=== PATIENT | male | born 1970 | race Caucasian/White ===

== ENCOUNTER 2017-07-15 12:21 | Emergency (ER) | payer BC, OTHER ==
[2017-07-15] MEDS ORDERED: Ondansetron 4 MG/2 ML SDV IVPUSH ONE (13:20)
[2017-07-15] MEDS ORDERED: Sodium Chloride 0.9% 1,000 ML IV ONE ×2 (13:20→16:16)
[2017-07-15] MEDS ORDERED: Morphine 2 MG/ML Syringe IVPUSH ONE (13:20)
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
[2017-07-15 14:30] LABS: CHLORIDE,CL 102 mmol/L (98-107); SODIUM,NA 138 mmol/L (136-148)
--- NOTE | 2017-07-15 14:34 | PCM.SN ---
- Free Text/Narrative Note: called or IV start. Patient gives verbal consent. Left hand x 1 attempt 18 ga aseptic technique saline lock dressing and secured with tape.
[2017-07-15] MEDS ORDERED: Iopamidol 755 MG/ML 500 ML Multipack Bottle IVPUSH STA (14:53)
[2017-07-15] MEDS ORDERED: Piperacillin/Tazobactam 3.375 GM in Sodium Chloride 0.9% 50 ML IV ONE (15:18)
--- NOTE | 2017-07-15 15:24 | CT ---
CT scan of the abdomen and pelvis Clinical history: Left lower quadrant pain extending to groin Comparison: None. Findings: Multiple computed tomographic images were obtained with intravenous Isovue-370, 90 mL Lung bases are clear. Liver spleen pancreas and gallbladder are within normal limits. Kidneys adrenals and retroperitoneum are normal. Scanning through the lower abdomen into the pelvis demonstrates a soft tissue mass in the left lower quadrant inseparable from the colon with air bubbles extending into the soft tissues adjacent includi ng a large iliopsoas multicompartment abscess. This is not typical of diverticulitis which usually re spects these boundaries. Most serious concern would be with a neoplasm of the descending colon which has perforated and surgical consultation advised. Inflammation extends anteriorly toward the groin. Impression: Large left iliopsoas multicompartment abscess with soft tissue mass in the colon and like ly perforation. This is not typical for diverticulitis and most serious possibility is a perforated n eoplasm. Surgical consultation advised
[2017-07-15] MEDS ORDERED: fentaNYL 100 MCG/2 ML SDV IVPUSH ONE (16:16)
[2017-07-15 17:26] VITALS: BP 102/56
== END 2017-07-15 17:10 ==
LOC: MW.ED 12:21
DX: L02.211 Cutaneous abscess of abdominal wall (principal); F17.210 Nicotine dependence, cigarettes, uncomplicated
CPT/HCPCS: 36415; 74177; 80053; 81001; 85025; 85610; 87040; 96361; 96365; 96375; 99285; J2270; J2405; J2543; J3010; J7040; J7050; Q9967; 99283

== ENCOUNTER 2018-07-04 08:34 | Observation (INO) | payer MEDICAID ==
[2018-07-04] MEDS ORDERED: Ondansetron 4 MG/2 ML SDV IVPUSH ONE (09:02)
[2018-07-04] MEDS ORDERED: Sodium Chloride 0.9% 2.5 ML Syringe FLUSH PRN (09:02)
[2018-07-04] MEDS ORDERED: Sodium Chloride 0.9% 1,000 ML IV ONE (09:02)
[2018-07-04] MEDS ORDERED: Sodium Chloride 0.9% 10 ML Syringe FLUSH PRN (09:02)
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
[2018-07-04 09:46] LABS: CHLORIDE,CL 103 mmol/L (98-107); SODIUM,NA 139 mmol/L (136-148)
[2018-07-04] MEDS ORDERED: Azithromycin 250 MG Tab PO ONE (09:50)
--- NOTE | 2018-07-04 10:06 | CR ---
INDICATION: pain/sob Single AP view Findings: The lungs are clear. Pulmonary vascularity, mediastinum and cardiac silhouette are within normal limits. No effusions and no pneumothorax. Chronic fracture or thoracotomy changes lateral left chest wall. Impression: No evidence of acute cardiopulmonary disease. Dictated by: Harshad Ferrell MD @ 07/04/2018 10:04:05 (Electronically Signed)
[2018-07-04] MEDS ORDERED: Iopamidol 755 MG/ML 500 ML Multipack Bottle IVPUSH ONE (10:12)
[2018-07-04] MEDS ORDERED: Levofloxacin/Dextrose 5%-Water 750 MG in Premix Bag 1 BAG IV ONE (10:17)
--- NOTE | 2018-07-04 10:36 | CT ---
INDICATION: Diarrhea. Recent reversal colostomy. COMPARISON: [address] TECHNIQUE: 100 mL Isovue-370 IV contrast. FINDINGS: Strandy atelectasis at the left costophrenic angle. Some residual pneumoperitoneum. Fluid and air in mildly prominent stomach. Fluid and air within large and small bowel. End-to-side anastomotic staple line in the sigmoid. Decompressed sigmoid and rectum distal from this. Relative mild enhancement of wall and folds of the large and small bowel proximal from the anastomosis. Small amount of air and hazy inflammation in the left abdominal wall under the presumed prior ostomy site. Small amount of dependent fluid in the peritoneum. IMPRESSION: Postop ileus versus potentially stenosis at the sigmoid anastomosis. Residual peritoneal and soft tissue air related to recent surgery. Please note that all CT scans at this facility use dose modulation, iterative reconstruction, and/or weight-based dosing when appropriate to reduce radiation dose to as low as reasonably achievable. Dictated by Harshad Ferrell MD @ Jul 04 2018 10:34AM Signed by Dr. Harshad Ferrell @ Jul 04 2018 10:34AM
[2018-07-04] MEDS ORDERED: Ondansetron 4 MG/2 ML SDV IVPUSH PRN (12:41)
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
[2018-07-04] MEDS: Sodium Chloride 0.9% 1,000 ML IV SCH ×2 (13:14→20:42)
[2018-07-04] MEDS: Heparin Sodium 5,000 Units/ML Vial SUBCUT SCH ×2 (13:15→20:42)
[2018-07-04] MEDS: Morphine 2 MG/ML Syringe IVPUSH PRN ×2 (16:49→20:42)
[2018-07-04] MEDS: metroNIDAZOLE/Normal Saline 500 MG in Premix Bag 1 BAG IV SCH (18:04)
[2018-07-04] MEDS: Nicotine 14 MG/24 Hr Patch TRDERM SCH (18:06)
[2018-07-04] MEDS: Vancomycin 25 MG/ML Compounding Kit PO SCH (19:20)
[2018-07-05] MEDS: metroNIDAZOLE/Normal Saline 500 MG in Premix Bag 1 BAG IV SCH ×5 (01:00→23:50)
[2018-07-05] MEDS: Vancomycin 25 MG/ML Compounding Kit PO SCH ×5 (01:00→23:49)
[2018-07-05] MEDS: Morphine 2 MG/ML Syringe IVPUSH PRN ×3 (01:40→08:39)
[2018-07-05] MEDS: Heparin Sodium 5,000 Units/ML Vial SUBCUT SCH ×3 (05:36→20:14)
[2018-07-05 06:48] LABS: CHLORIDE,CL 104 mmol/L (98-107); SODIUM,NA 139 mmol/L (136-148)
[2018-07-05] MEDS: Nicotine 14 MG/24 Hr Patch TRDERM SCH (08:47)
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
--- NOTE | 2018-07-05 09:00 | PCM.CONSN ---
- General Info Date of Service: 07/05/18 Subjective Update: Patient is a 47 year old male who underwent a colostomy takedown on Friday and left AMA on . He presented to the ER with nausea, vomiting, abdominal pain, distension and diarrhea. He tested positive for C. Diff, camphylobacter and his CT scan showed diffuse dilation of the large and small intestine consistent with either an ileus or stricture due to swelling at the anastomotic site. He is being treated with oral vanco and IV flagyl. He had a large amount of drainage from the ostomy closure site. He had no fevers and no vomiting last night. He states that the IV morphine has helped control his pain significantly. He is still having loose stool but is also passing gas. He feels less distended today. Functional Status: Reports: Pain Controlled, Ambulating, Urinating - Review of Systems General: Reports: No Symptoms HEENT: Reports: No Symptoms Pulmonary: Reports: No Symptoms Cardiovascular: Reports: No Symptoms Gastrointestinal: Reports: Abdominal Pain, Diarrhea, Flatus. Denies: Nausea, Vomiting - Patient Data Vitals - Most Recent: Last Vital Signs Temp 37.3 C 07/05/18 04:36 Pulse 73 07/05/18 04:36 Resp 18 07/05/18 04:36 BP 137/79 07/05/18 04:36 Pulse Ox 97 07/05/18 04:36 Weight - Most Recent: 72 kg I&O - Last 24 Hours: Intake & Output 07/04/18 07/05/18 07/05/18 22:59 06:59 14:59 Intake Total 467 1532 Balance 467 1532 Lab Results Last 24 Hours: Laboratory Results - last 24 hr 07/04/18 07/04/18 07/04/18 Range/Units 09:10 09:10 09:10 WBC 13.17 H (4.0-11.0) K/uL RBC 4.20 L (4.50-5.90) M/uL Hgb 12.6 L (13.0-17.0) g/dL Hct 36.6 L (38.0-50.0) % MCV 87.1 (80.0-98.0) fL MCH 30.0 (27.0-32.0) pg MCHC 34.4 (31.0-37.0) g/dL RDW Std Deviation 41.5 (28.0-62.0) fl RDW Coeff of Anand 13 (11.0-15.0) % Plt Count 291 (150-400) K/uL MPV 9.10 (7.40-12.00) fL Neut % (Auto) 90.0 H (48.0-80.0) % Lymph % (Auto) 5.5 L (16.0-40.0) % [place] % (Auto) 3.1 (0.0-15.0) % Eos % (Auto) 1.3 (0.0-7.0) % Baso % (Auto) 0.1 (0.0-1.5) % Neut # (Auto) 11.9 H (1.4-5.7) K/uL Lymph # (Auto) 0.7 (0.6-2.4) K/uL [place] # (Auto) 0.4 (0.0-0.8) K/uL Eos # (Auto) 0.2 (0.0-0.7) K/uL Baso # (Auto) 0.0 (0.0-0.1) K/uL Nucleated RBC % 0.0 /100WBC Nucleated RBCs # 0 K/uL INR 0.97 Lactate (0.20-2.00) mmol/L Sodium (136-148) mmol/L Potassium (3.5-5.1) mmol/L Chloride (98-107) mmol/L Carbon Dioxide (21.0-32.0) mmol/L BUN (7.0-18.0) mg/dL Creatinine (0.8-1.3) mg/dL Est Cr Clr Drug Dosing mL/min Estimated GFR (MDRD) ml/min Glucose (74-106) mg/dL Calcium (8.5-10.1) mg/dL Total Bilirubin (0.2-1.0) mg/dL AST (15-37) IU/L ALT (14-63) IU/L Alkaline Phosphatase (46-116) U/L Total Protein (6.4-8.2) g/dL Albumin (3.4-5.0) g/dL Globulin (2.6-4.0) g/dL Albumin/Globulin Ratio (0.9-1.6) Lipase (73-393) U/L Urine Color YELLOW Urine Appearance CLEAR Urine pH 6.0 (5.0-8.0) Ur Specific [place] 1.025 (1.001-1.035) Urine Protein 30 H (NEGATIVE) mg/dL Urine Glucose (UA) NEGATIVE (NEGATIVE) mg/dL Urine Ketones NEGATIVE (NEGATIVE) mg/dL Urine Occult Blood LARGE H (NEGATIVE) Urine Nitrite NEGATIVE (NEGATIVE) Urine Bilirubin SMALL H (NEGATIVE) Urine Ictotest NEGATIVE Urine Urobilinogen 0.2 (<2.0) EU/dL Ur Leukocyte Esterase NEGATIVE (NEGATIVE) Urine RBC 0-1 (0-2/HPF) Urine WBC 2-3 (0-5/HPF) Ur Epithelial Cells RARE (NONE-FEW) Urine Bacteria 1+ H (NEGATIVE) Urine Mucus HEAVY (NONE-MOD) Urine Yeast RARE 07/04/18 07/04/18 07/05/18 Range/Units 09:10 11:06 05:58 WBC 9.74 (4.0-11.0) K/uL RBC 3.70 L (4.50-5.90) M/uL Hgb 11.2 L (13.0-17.0) g/dL Hct 32.0 L (38.0-50.0) % MCV 86.5 (80.0-98.0) fL MCH 30.3 (27.0-32.0) pg MCHC 35.0 (31.0-37.0) g/dL RDW Std Deviation 40.9 (28.0-62.0) fl RDW Coeff of Anand 13 (11.0-15.0) % Plt Count 262 (150-400) K/uL MPV 9.20 (7.40-12.00) fL Neut % (Auto) 84.2 H (48.0-80.0) % Lymph % (Auto) 6.7 L (16.0-40.0) % [place] % (Auto) 6.4 (0.0-15.0) % Eos % (Auto) 2.5 (0.0-7.0) % Baso % (Auto) 0.2 (0.0-1.5) % Neut # (Auto) 8.2 H (1.4-5.7) K/uL Lymph # (Auto) 0.7 (0.6-2.4) K/uL [place] # (Auto) 0.6 (0.0-0.8) K/uL Eos # (Auto) 0.2 (0.0-0.7) K/uL Baso # (Auto) 0.0 (0.0-0.1) K/uL Nucleated RBC % 0.0 /100WBC Nucleated RBCs # 0 K/uL INR Lactate 1.2 (0.20-2.00) mmol/L Sodium 139 (136-148) mmol/L Potassium 3.5 (3.5-5.1) mmol/L Chloride 103 (98-107) mmol/L Carbon Dioxide 26.9 (21.0-32.0) mmol/L BUN 17 (7.0-18.0) mg/dL Creatinine 0.9 (0.8-1.3) mg/dL Est Cr Clr Drug Dosing 105.56 mL/min Estimated GFR (MDRD) > 60.0 ml/min Glucose 139 H (74-106) mg/dL Calcium 9.0 (8.5-10.1) mg/dL Total Bilirubin 0.7 (0.2-1.0) mg/dL AST 20 (15-37) IU/L ALT 17 (14-63) IU/L Alkaline Phosphatase 103 (46-116) U/L Total Protein 6.9 (6.4-8.2) g/dL Albumin 3.1 L (3.4-5.0) g/dL Globulin 3.8 (2.6-4.0) g/dL Albumin/Globulin Ratio 0.8 L (0.9-1.6) Lipase 67 L (73-393) U/L Urine Color Urine Appearance Urine pH (5.0-8.0) Ur Specific [place] (1.001-1.035) Urine Protein (NEGATIVE) mg/dL Urine Glucose (UA) (NEGATIVE) mg/dL Urine Ketones (NEGATIVE) mg/dL Urine Occult Blood (NEGATIVE) Urine Nitrite (NEGATIVE) Urine Bilirubin (NEGATIVE) Urine Ictotest Urine Urobilinogen (<2.0) EU/dL Ur Leukocyte Esterase (NEGATIVE) Urine RBC (0-2/HPF) Urine WBC (0-5/HPF) Ur Epithelial Cells (NONE-FEW) Urine Bacteria (NEGATIVE) Urine Mucus (NONE-MOD) Urine Yeast 07/05/18 Range/Units 05:58 WBC (4.0-11.0) K/uL RBC (4.50-5.90) M/uL Hgb (13.0-17.0) g/dL Hct (38.0-50.0) % MCV (80.0-98.0) fL MCH (27.0-32.0) pg MCHC (31.0-37.0) g/dL RDW Std Deviation (28.0-62.0) fl RDW Coeff of Anand (11.0-15.0) % Plt Count (150-400) K/uL MPV (7.40-12.00) fL Neut % (Auto) (48.0-80.0) % Lymph % (Auto) (16.0-40.0) % [place] % (Auto) (0.0-15.0) % Eos % (Auto) (0.0-7.0) % Baso % (Auto) (0.0-1.5) % Neut # (Auto) (1.4-5.7) K/uL Lymph # (Auto) (0.6-2.4) K/uL [place] # (Auto) (0.0-0.8) K/uL Eos # (Auto) (0.0-0.7) K/uL Baso # (Auto) (0.0-0.1) K/uL Nucleated RBC % /100WBC Nucleated RBCs # K/uL INR Lactate (0.20-2.00) mmol/L Sodium 139 (136-148) mmol/L Potassium 2.8 L (3.5-5.1) mmol/L Chloride 104 (98-107) mmol/L Carbon Dioxide 23.8 (21.0-32.0) mmol/L BUN 14 (7.0-18.0) mg/dL Creatinine 0.7 L (0.8-1.3) mg/dL Est Cr Clr Drug Dosing 135.71 mL/min Estimated GFR (MDRD) > 60.0 ml/min Glucose 104 (74-106) mg/dL Calcium 8.0 L (8.5-10.1) mg/dL Total Bilirubin 0.6 (0.2-1.0) mg/dL AST 18 (15-37) IU/L ALT 21 (14-63) IU/L Alkaline Phosphatase 114 (46-116) U/L Total Protein 5.5 L (6.4-8.2) g/dL Albumin 2.4 L (3.4-5.0) g/dL Globulin 3.1 (2.6-4.0) g/dL Albumin/Globulin Ratio 0.8 L (0.9-1.6) Lipase (73-393) U/L Urine Color Urine Appearance Urine pH (5.0-8.0) Ur Specific [place] (1.001-1.035) Urine Protein (NEGATIVE) mg/dL Urine Glucose (UA) (NEGATIVE) mg/dL Urine Ketones (NEGATIVE) mg/dL Urine Occult Blood (NEGATIVE) Urine Nitrite (NEGATIVE) Urine Bilirubin (NEGATIVE) Urine Ictotest Urine Urobilinogen (<2.0) EU/dL Ur Leukocyte Esterase (NEGATIVE) Urine RBC (0-2/HPF) Urine WBC (0-5/HPF) Ur Epithelial Cells (NONE-FEW) Urine Bacteria (NEGATIVE) Urine Mucus (NONE-MOD) Urine Yeast Tyson Results Last 24 Hours: Microbiology 07/04/18 15:05 Urine Culture - Preliminary Urine, Clean Catch NO GROWTH AFTER 1 DAY 07/04/18 09:10 Campylobacter Antigen Assay - Final Stool / Feces Positive Campylobacter Ag Shiga Toxin I - Final NEGATIVE FOR SHIGA TOXIN 1 REFERENCE RANGE: NEGATIVE Shiga Toxin II - Final NEGATIVE FOR SHIGA TOXIN 2 REFERENCE RANGE: NEGATIVE 07/04/18 09:10 Clostridium difficile Toxin A & B - Final Stool / Feces Positive C. Diff Antigen Stool for WBCs - Final POSITIVE FOR WBC'S REFERENCE RANGE: NO WBC SEEN Med Orders - Current: Current Medications Heparin Sodium (Porcine) (Heparin Sodium) 5,000 units SUBCUT Q8H [facility] Last Admin: 07/05/18 05:36 Dose: 5,000 units Levofloxacin/Dextrose 750 mg/ (Premix) 150 mls @ 100 mls/hr IV Q24H [facility] Metronidazole 500 mg/ Premix 100 mls @ 100 mls/hr IV QID [facility] Last Admin: 07/05/18 05:35 Dose: 100 mls/hr Sodium Chloride (Normal Saline) 1,000 mls @ 125 mls/hr IV ASDIRECTED [facility] Last Admin: 07/04/18 20:42 Dose: 125 mls/hr Morphine Sulfate (Morphine) 2 mg IVPUSH Q4H PRN PRN Reason: Pain Last Admin: 07/05/18 08:39 Dose: 2 mg Nicotine (Habitrol) 14 mg TRDERM DAILY [facility] Last Admin: 07/05/18 08:47 Dose: 14 mg Ondansetron HCl (Zofran) 4 mg IVPUSH Q4H PRN PRN Reason: Nausea Sodium Chloride (Saline Flush) 10 ml FLUSH ASDIRECTED PRN PRN Reason: Keep Vein Open Last Admin: 07/04/18 09:16 Dose: 10 ml Sodium Chloride (Saline Flush) 2.5 ml FLUSH ASDIRECTED PRN PRN Reason: Keep Vein Open Last Admin: 07/04/18 09:16 Dose: 2.5 ml Vancomycin HCl (First-Vancomycin 25 Compounding Kit) 125 mg PO QID [facility] Last Admin: 07/05/18 05:36 Dose: 5 ml Discontinued Medications Azithromycin (Zithromax) 500 mg PO STAT ONE Stop: 07/04/18 09:51 Last Admin: 07/04/18 10:09 Dose: 500 mg Sodium Chloride (Normal Saline) 1,000 mls @ 999 mls/hr IV STAT ONE Stop: 07/04/18 10:02 Last Admin: 07/04/18 09:14 Dose: 999 mls/hr Levofloxacin/Dextrose 750 mg/ (Premix) 150 mls @ 100 mls/hr IV ONETIME ONE Stop: 07/04/18 11:46 Last Admin: 07/04/18 11:11 Dose: 100 mls/hr Iopamidol (Isovue Multipack-370 (76%)) 100 ml IVPUSH ONETIME ONE Stop: 07/04/18 10:13 Last Admin: 07/04/18 10:12 Dose: 100 ml Ondansetron HCl (Zofran) 4 mg IVPUSH ONETIME ONE Stop: 07/04/18 09:03 Last Admin: 07/04/18 09:14 Dose: 4 mg - Exam General: Alert, Oriented, Cooperative Lungs: Normal Respiratory Effort Cardiovascular: Regular Rate GI/Abdominal Exam: Soft, No Distention, Other (There appears to be some purulent drainage from the ostomy site. I removed the melinda and there is an abscess cavity underneath. I irrigated and cleaned the area. The fascia appears intact underneath. ) Consult PN Assessment/Plan Procedures: Procedures BLOOD CULTURE FOR BACTERIA (07/15/17) COMPLETE CBC W/AUTO DIFF WBC (07/15/17) COMPREHEN METABOLIC PANEL (07/15/17) CT ABD & PELV W/CONTRAST (07/15/17) EMERGENCY DEPT VISIT (07/15/17) EMERGENCY DEPT VISIT (12/19/14) HYDRATE IV INFUSION ADD-ON (07/15/17) HYDRATION IV INFUSION INIT (10/16/17) PET IMAGE W/CT SKULL-THIGH (04/27/18) PROTHROMBIN TIME (07/15/17) ROUTINE VENIPUNCTURE (07/15/17) THER/PROPH/DIAG INJ SC/IM (10/16/17) THER/PROPH/DIAG IV INF INIT (07/15/17) TX/PRO/DX INJ NEW DRUG ADDON (07/15/17) URINALYSIS AUTO W/SCOPE (07/15/17) (1) C. difficile diarrhea SNOMED Code(s): 6146758890689 Code(s): A04.72 - ENTEROCOLITIS D/T CLOSTRIDIUM DIFFICILE, NOT SPCF RECUR Current Visit: Yes (2) Campylobacter diarrhea SNOMED Code(s): 37531171 Code(s): A04.5 - CAMPYLOBACTER ENTERITIS Current Visit: Yes (3) Gaseous distention of intestine determined by X-ray SNOMED Code(s): 606174924, 040030003 Code(s): K63.89 - OTHER SPECIFIED DISEASES OF INTESTINE Current Visit: Yes (4) History of colon cancer SNOMED Code(s): 583520724 Code(s): Z85.038 - PERSONAL HISTORY OF MALIGNANT NEOPLASM OF LARGE INTESTINE Current Visit: Yes (5) Post-operative complication SNOMED Code(s): 504268068 Code(s): T81.9XXA - UNSPECIFIED COMPLICATION OF PROCEDURE, INITIAL ENCOUNTER Current Visit: Yes (6) Surgical site infection SNOMED Code(s): 19114340, 337315467 Code(s): T81.49XA - INFECTION FOLLOWING A PROCEDURE, OTHER SURGICAL SITE, INIT Current Visit: Yes Problem List Initiated/Reviewed/Updated: Yes My Orders Last 24 Hours: My Active Orders 07/05/18 Breakfast Clear Liquid Diet [DIET] Plan: The patient's ostomy site was infected. I opened it and packed the wound with wet to dry dressings. No need for further antibiotics due to this. Daily wet to dry dressing changes by the nurses. Can be changed more frequently if it becomes saturated. His abdomen feels less distended and tender today. Ok to advance diet to clears. I would not go beyond that today. If he looks well in the morning, can attempt a regular diet. Will continue to follow. Call with questions or concerns.
[2018-07-05] MEDS: Sodium Chloride 0.9% 1,000 ML IV SCH ×2 (12:00→22:57)
[2018-07-05] MEDS: Levofloxacin/Dextrose 5%-Water 750 MG in Premix Bag 1 BAG IV SCH (13:25)
--- NOTE | 2018-07-05 14:03 | PCM.PN ---
- General Info Date of Service: 07/05/18 - Review of Systems Systems Review Comment:: still having diarrhea but more formed stool, abdominal pain improving. - Patient Data Vitals - Most Recent: Last Vital Signs Temp 37.1 C 07/05/18 09:30 Pulse 60 07/05/18 09:30 Resp 18 07/05/18 09:30 BP 130/79 07/05/18 09:30 Pulse Ox 97 07/05/18 09:30 Weight - Most Recent: 72 kg I&O - Last 24 Hours: Intake & Output 07/04/18 07/05/18 07/05/18 22:59 06:59 14:59 Intake Total 467 1532 769 Balance 467 1532 769 Lab Results Last 24 Hours: Laboratory Results - last 24 hr 07/05/18 07/05/18 Range/Units 05:58 05:58 WBC 9.74 (4.0-11.0) K/uL RBC 3.70 L (4.50-5.90) M/uL Hgb 11.2 L (13.0-17.0) g/dL Hct 32.0 L (38.0-50.0) % MCV 86.5 (80.0-98.0) fL MCH 30.3 (27.0-32.0) pg MCHC 35.0 (31.0-37.0) g/dL RDW Std Deviation 40.9 (28.0-62.0) fl RDW Coeff of Anand 13 (11.0-15.0) % Plt Count 262 (150-400) K/uL MPV 9.20 (7.40-12.00) fL Neut % (Auto) 84.2 H (48.0-80.0) % Lymph % (Auto) 6.7 L (16.0-40.0) % [place] % (Auto) 6.4 (0.0-15.0) % Eos % (Auto) 2.5 (0.0-7.0) % Baso % (Auto) 0.2 (0.0-1.5) % Neut # (Auto) 8.2 H (1.4-5.7) K/uL Lymph # (Auto) 0.7 (0.6-2.4) K/uL [place] # (Auto) 0.6 (0.0-0.8) K/uL Eos # (Auto) 0.2 (0.0-0.7) K/uL Baso # (Auto) 0.0 (0.0-0.1) K/uL Nucleated RBC % 0.0 /100WBC Nucleated RBCs # 0 K/uL Sodium 139 (136-148) mmol/L Potassium 2.8 L (3.5-5.1) mmol/L Chloride 104 (98-107) mmol/L Carbon Dioxide 23.8 (21.0-32.0) mmol/L BUN 14 (7.0-18.0) mg/dL Creatinine 0.7 L (0.8-1.3) mg/dL Est Cr Clr Drug Dosing 135.71 mL/min Estimated GFR (MDRD) > 60.0 ml/min Glucose 104 (74-106) mg/dL Calcium 8.0 L (8.5-10.1) mg/dL Total Bilirubin 0.6 (0.2-1.0) mg/dL AST 18 (15-37) IU/L ALT 21 (14-63) IU/L Alkaline Phosphatase 114 (46-116) U/L Total Protein 5.5 L (6.4-8.2) g/dL Albumin 2.4 L (3.4-5.0) g/dL Globulin 3.1 (2.6-4.0) g/dL Albumin/Globulin Ratio 0.8 L (0.9-1.6) Tyson Results Last 24 Hours: Microbiology 07/04/18 11:06 Aerobic Blood Culture - Preliminary Blood - Venous - Lab Draw NO GROWTH AFTER 1 DAY Anaerobic Blood Culture - Preliminary NO GROWTH AFTER 1 DAY 07/04/18 10:26 Aerobic Blood Culture - Preliminary Blood - Venous NO GROWTH AFTER 1 DAY Anaerobic Blood Culture - Preliminary NO GROWTH AFTER 1 DAY 07/04/18 15:05 Urine Culture - Preliminary Urine, Clean Catch NO GROWTH AFTER 1 DAY 07/04/18 09:10 Campylobacter Antigen Assay - Final Stool / Feces Positive Campylobacter Ag Shiga Toxin I - Final NEGATIVE FOR SHIGA TOXIN 1 REFERENCE RANGE: NEGATIVE Shiga Toxin II - Final NEGATIVE FOR SHIGA TOXIN 2 REFERENCE RANGE: NEGATIVE 07/04/18 09:10 Clostridium difficile Toxin A & B - Final Stool / Feces Positive C. Diff Antigen Stool for WBCs - Final POSITIVE FOR WBC'S REFERENCE RANGE: NO WBC SEEN Med Orders - Current: Current Medications Heparin Sodium (Porcine) (Heparin Sodium) 5,000 units SUBCUT Q8H [facility] Last Admin: 07/05/18 12:10 Dose: 5,000 units Levofloxacin/Dextrose 750 mg/ (Premix) 150 mls @ 100 mls/hr IV Q24H [facility] Last Admin: 07/05/18 13:25 Dose: 100 mls/hr Metronidazole 500 mg/ Premix 100 mls @ 100 mls/hr IV QID [facility] Last Admin: 07/05/18 12:10 Dose: 100 mls/hr Sodium Chloride (Normal Saline) 1,000 mls @ 125 mls/hr IV ASDIRECTED [facility] Last Admin: 07/05/18 12:00 Dose: 125 mls/hr Morphine Sulfate (Morphine) 2 mg IVPUSH Q4H PRN PRN Reason: Pain Last Admin: 07/05/18 08:39 Dose: 2 mg Nicotine (Habitrol) 14 mg TRDERM DAILY [facility] Last Admin: 07/05/18 08:47 Dose: 14 mg Ondansetron HCl (Zofran) 4 mg IVPUSH Q4H PRN PRN Reason: Nausea Oxycodone HCl (Oxycodone) 5 mg PO Q4H PRN PRN Reason: Pain Sodium Chloride (Saline Flush) 10 ml FLUSH ASDIRECTED PRN PRN Reason: Keep Vein Open Last Admin: 07/04/18 09:16 Dose: 10 ml Sodium Chloride (Saline Flush) 2.5 ml FLUSH ASDIRECTED PRN PRN Reason: Keep Vein Open Last Admin: 07/04/18 09:16 Dose: 2.5 ml Vancomycin HCl (First-Vancomycin 25 Compounding Kit) 125 mg PO QID [facility] Last Admin: 07/05/18 12:19 Dose: 5 ml Discontinued Medications Azithromycin (Zithromax) 500 mg PO STAT ONE Stop: 07/04/18 09:51 Last Admin: 07/04/18 10:09 Dose: 500 mg Sodium Chloride (Normal Saline) 1,000 mls @ 999 mls/hr IV STAT ONE Stop: 07/04/18 10:02 Last Admin: 07/04/18 09:14 Dose: 999 mls/hr Levofloxacin/Dextrose 750 mg/ (Premix) 150 mls @ 100 mls/hr IV ONETIME ONE Stop: 07/04/18 11:46 Last Admin: 07/04/18 11:11 Dose: 100 mls/hr Iopamidol (Isovue Multipack-370 (76%)) 100 ml IVPUSH ONETIME ONE Stop: 07/04/18 10:13 Last Admin: 07/04/18 10:12 Dose: 100 ml Ondansetron HCl (Zofran) 4 mg IVPUSH ONETIME ONE Stop: 07/04/18 09:03 Last Admin: 07/04/18 09:14 Dose: 4 mg - Exam General: Alert, Oriented Lungs: Clear to Auscultation, Normal Respiratory Effort Cardiovascular: Regular Rate, Regular Rhythm GI/Abdominal Exam: Normal Bowel Sounds, Soft, Non-Tender Extremities: Non-Tender, No Pedal Edema Skin: Warm, Dry, Intact Neurological: No New Focal Deficit - Problem List Review Problem List Initiated/Reviewed/Updated: Yes - My Orders Last 24 Hours: My Active Orders 07/04/18 15:05 CULTURE URINE [RM] Routine 07/04/18 16:15 Morphine 2 mg IVPUSH Q4H PRN 07/04/18 17:45 Nicotine [Habitrol] 14 mg TRDERM DAILY 07/04/18 18:00 Vancomycin [First-Vancomycin 25 Compounding Kit] 125 mg PO QID metroNIDAZOLE/Normal Saline [Flagyl 500 MG in NS 100 ML] 500 mg Premix Bag 1 bag IV QID 07/05/18 12:45 Levofloxacin/Dextrose 5%-Water [Levaquin in D5W 750 MG/150 ML] 750 mg Premix Bag 1 bag IV Q24H 07/05/18 13:36 oxyCODONE 5 mg PO Q4H PRN 07/06/18 05:11 BASIC METABOLIC PANEL,BMP [CHEM] AM CBC WITH AUTO DIFF [HEME] AM - Plan Plan:: 47 yo male admitted for possible post op ileus and Campylobacter, UTI, C.diff infection. Post-op ileus: clear liquids, oxycodone prn C.diff infection: IV Flagyl until oral intake is more reliable, continue PO vancomycin UTI/Campylobacter: Levaquin Dr. Wisdom removed sutures from ostomy wound due to infection
[2018-07-05] MEDS ORDERED: Potassium Chloride 20 MEQ Tab.ER PO ONE (14:10)
[2018-07-05] MEDS ORDERED: Sodium Chloride 0.9% with KCl 1,000 ML IV SCH (14:15)
[2018-07-05] MEDS: oxyCODONE 5 MG Tab PO PRN ×2 (15:20→20:15)
[2018-07-06] MEDS: oxyCODONE 5 MG Tab PO PRN ×5 (00:39→20:18)
[2018-07-06] MEDS: Heparin Sodium 5,000 Units/ML Vial SUBCUT SCH ×3 (06:12→20:19)
[2018-07-06] MEDS: Vancomycin 25 MG/ML Compounding Kit PO SCH ×3 (06:12→17:47)
[2018-07-06] MEDS: metroNIDAZOLE/Normal Saline 500 MG in Premix Bag 1 BAG IV SCH (06:12)
[2018-07-06 06:42] LABS: CHLORIDE,CL 104 mmol/L (98-107); SODIUM,NA 137 mmol/L (136-148)
[2018-07-06] MEDS: Sodium Chloride 0.9% 1,000 ML IV SCH ×2 (08:15→19:19)
[2018-07-06] MEDS: Potassium Chloride 10% 20 MEQ/15 ML Soln 30 ML UD Cup PO ONE ×2 (08:32→08:48)
[2018-07-06] MEDS: Nicotine 14 MG/24 Hr Patch TRDERM SCH (08:34)
[2018-07-06] MEDS ORDERED: Potassium Chloride 20 MEQ Tab.ER PO ONE (09:53)
[2018-07-06] MEDS ORDERED: Sodium Chloride 0.9% with KCl 1,000 ML IV SCH (10:00)
--- NOTE | 2018-07-06 10:11 | PCM.PN ---
- General Info Date of Service: 07/06/18 Subjective Update: States that he feels miserable, endorsing abdominal pain at the incision site. He states that his diarrhea has improved. He is tolerating PO. No fever, nausea , vomiting. - Review of Systems General: Reports: Other (see hpi) - Patient Data Vitals - Most Recent: Last Vital Signs Temp 36.6 C 07/06/18 08:00 Pulse 61 07/06/18 08:00 Resp 18 07/06/18 08:00 BP 133/76 07/06/18 08:00 Pulse Ox 97 07/06/18 04:00 Weight - Most Recent: 72 kg I&O - Last 24 Hours: Intake & Output 07/05/18 07/06/18 07/06/18 22:59 06:59 14:59 Intake Total 957 1755 325 Balance 957 1755 325 Lab Results Last 24 Hours: Laboratory Results - last 24 hr 07/05/18 07/06/18 07/06/18 Range/Units 05:58 06:18 06:18 WBC 8.13 (4.0-11.0) K/uL RBC 3.80 L (4.50-5.90) M/uL Hgb 11.2 L (13.0-17.0) g/dL Hct 32.4 L (38.0-50.0) % MCV 85.3 (80.0-98.0) fL MCH 29.5 (27.0-32.0) pg MCHC 34.6 (31.0-37.0) g/dL RDW Std Deviation 39.2 (28.0-62.0) fl RDW Coeff of Anand 13 (11.0-15.0) % Plt Count 287 (150-400) K/uL MPV 9.00 (7.40-12.00) fL Neut % (Auto) 74.8 (48.0-80.0) % Lymph % (Auto) 9.7 L (16.0-40.0) % [place] % (Auto) 7.6 (0.0-15.0) % Eos % (Auto) 7.5 H (0.0-7.0) % Baso % (Auto) 0.4 (0.0-1.5) % Neut # (Auto) 6.1 H (1.4-5.7) K/uL Lymph # (Auto) 0.8 (0.6-2.4) K/uL [place] # (Auto) 0.6 (0.0-0.8) K/uL Eos # (Auto) 0.6 (0.0-0.7) K/uL Baso # (Auto) 0.0 (0.0-0.1) K/uL Nucleated RBC % 0.0 /100WBC Nucleated RBCs # 0 K/uL Sodium 137 (136-148) mmol/L Potassium 3.2 L (3.5-5.1) mmol/L Chloride 104 (98-107) mmol/L Carbon Dioxide 23.1 (21.0-32.0) mmol/L BUN 13 (7.0-18.0) mg/dL Creatinine 0.7 L (0.8-1.3) mg/dL Est Cr Clr Drug Dosing 134.29 mL/min Estimated GFR (MDRD) > 60.0 ml/min Glucose 97 (74-106) mg/dL Calcium 8.1 L (8.5-10.1) mg/dL Magnesium 2.0 2.0 (1.8-2.4) mg/dL Tyson Results Last 24 Hours: Microbiology 07/04/18 09:10 Stool Culture - Final Stool / Feces NO SALMONELLA, SHIGELLA,OR E.COLI O157 ISOLATED Campylobacter Antigen Assay - Final Positive Campylobacter Ag Shiga Toxin I - Final NEGATIVE FOR SHIGA TOXIN 1 REFERENCE RANGE: NEGATIVE Shiga Toxin II - Final NEGATIVE FOR SHIGA TOXIN 2 REFERENCE RANGE: NEGATIVE 07/04/18 15:05 Urine Culture - Final Urine, Clean Catch No Growth 07/04/18 11:06 Aerobic Blood Culture - Preliminary Blood - Venous - Lab Draw NO GROWTH AFTER 1 DAY Anaerobic Blood Culture - Preliminary NO GROWTH AFTER 1 DAY 07/04/18 10:26 Aerobic Blood Culture - Preliminary Blood - Venous NO GROWTH AFTER 1 DAY Anaerobic Blood Culture - Preliminary NO GROWTH AFTER 1 DAY Med Orders - Current: Current Medications Heparin Sodium (Porcine) (Heparin Sodium) 5,000 units SUBCUT Q8H [facility] Last Admin: 07/06/18 06:12 Dose: 5,000 units Levofloxacin/Dextrose 750 mg/ (Premix) 150 mls @ 100 mls/hr IV Q24H [facility] Last Admin: 07/05/18 13:25 Dose: 100 mls/hr Sodium Chloride (Normal Saline) 1,000 mls @ 125 mls/hr IV ASDIRECTED [facility] Last Admin: 07/06/18 08:15 Dose: 125 mls/hr Potassium Chloride/Sodium Chloride (Normal Saline With 40 Meq Kcl) 1,000 mls @ 150 mls/hr IV ASDIRECTED [facility] Stop: 07/06/18 16:39 Morphine Sulfate (Morphine) 2 mg IVPUSH Q4H PRN PRN Reason: Pain Last Admin: 07/05/18 08:39 Dose: 2 mg Nicotine (Habitrol) 14 mg TRDERM DAILY [facility] Last Admin: 07/06/18 08:34 Dose: 14 mg Ondansetron HCl (Zofran) 4 mg IVPUSH Q4H PRN PRN Reason: Nausea Oxycodone HCl (Oxycodone) 5 mg PO Q4H PRN PRN Reason: Pain Last Admin: 07/06/18 06:11 Dose: 5 mg Sodium Chloride (Saline Flush) 10 ml FLUSH ASDIRECTED PRN PRN Reason: Keep Vein Open Last Admin: 07/04/18 09:16 Dose: 10 ml Sodium Chloride (Saline Flush) 2.5 ml FLUSH ASDIRECTED PRN PRN Reason: Keep Vein Open Last Admin: 07/04/18 09:16 Dose: 2.5 ml Vancomycin HCl (First-Vancomycin 25 Compounding Kit) 125 mg PO QID [facility] Last Admin: 07/06/18 06:12 Dose: 5 ml Discontinued Medications Azithromycin (Zithromax) 500 mg PO STAT ONE Stop: 07/04/18 09:51 Last Admin: 07/04/18 10:09 Dose: 500 mg Sodium Chloride (Normal Saline) 1,000 mls @ 999 mls/hr IV STAT ONE Stop: 07/04/18 10:02 Last Admin: 07/04/18 09:14 Dose: 999 mls/hr Levofloxacin/Dextrose 750 mg/ (Premix) 150 mls @ 100 mls/hr IV ONETIME ONE Stop: 07/04/18 11:46 Last Admin: 07/04/18 11:11 Dose: 100 mls/hr Metronidazole 500 mg/ Premix 100 mls @ 100 mls/hr IV QID [facility] Last Admin: 07/06/18 06:12 Dose: 100 mls/hr Potassium Chloride/Sodium Chloride (Normal Saline With 40 Meq Kcl) 1,000 mls @ 150 mls/hr IV ASDIRECTED [facility] Stop: 07/05/18 20:54 Last Admin: 07/05/18 15:20 Dose: 150 mls/hr Iopamidol (Isovue Multipack-370 (76%)) 100 ml IVPUSH ONETIME ONE Stop: 07/04/18 10:13 Last Admin: 07/04/18 10:12 Dose: 100 ml Ondansetron HCl (Zofran) 4 mg IVPUSH ONETIME ONE Stop: 07/04/18 09:03 Last Admin: 07/04/18 09:14 Dose: 4 mg Potassium Chloride (Klor-Con M20) 40 meq PO ONETIME ONE Stop: 07/05/18 14:11 Last Admin: 07/05/18 15:20 Dose: 40 meq Potassium Chloride (Potassium Chloride) 40 meq PO ONETIME ONE Stop: 07/06/18 07:44 Last Admin: 07/06/18 08:48 Dose: Not Given Potassium Chloride (Klor-Con M20) 40 meq PO ONETIME ONE Stop: 07/06/18 09:54 - Exam General: Alert, Oriented HEENT: Pupils Equal, Pupils Reactive, EOMI, Mucous Membr. Moist/[place] Neck: Supple Lungs: Clear to Auscultation, Normal Respiratory Effort GI/Abdominal Exam: Normal Bowel Sounds, Soft, Other (incision site packed, appears clean) Peripheral Pulses: 2+: Dorsalis Pedis (L), Dorsalis Pedis (R) Skin: Warm, Dry, Intact Neurological: No New Focal Deficit Psy/Mental Status: Alert, Normal Affect, Normal Mood - Problem List Review Problem List Initiated/Reviewed/Updated: Yes - Plan Plan:: Assessment: #1. Ostomy site infection #2. C. Diff #3. UTI #4. Hypokalemia Plan: #1. Discontinue flagyl as per surgery recommendation, continue PO vancomycin and IV levaquin #2. Replace potassium as ordered #3. Advance diet as tolerated
--- NOTE | 2018-07-06 10:37 | PCM.CONSN ---
- General Info Date of Service: 07/06/18 Functional Status: Reports: Pain Controlled, Tolerating Diet, Ambulating, Other (serous drainage from lower midline incision ) - Review of Systems General: Reports: No Symptoms HEENT: Reports: No Symptoms Pulmonary: Reports: No Symptoms Cardiovascular: Reports: No Symptoms Gastrointestinal: Reports: No Symptoms Genitourinary: Reports: No Symptoms Musculoskeletal: Reports: No Symptoms - Patient Data Vitals - Most Recent: Last Vital Signs Temp 36.6 C 07/06/18 08:00 Pulse 61 07/06/18 08:00 Resp 18 07/06/18 08:00 BP 133/76 07/06/18 08:00 Pulse Ox 97 07/06/18 04:00 Weight - Most Recent: 72 kg I&O - Last 24 Hours: Intake & Output 07/05/18 07/06/18 07/06/18 22:59 06:59 14:59 Intake Total 957 1755 325 Balance 957 1755 325 Lab Results Last 24 Hours: Laboratory Results - last 24 hr 07/05/18 07/06/18 07/06/18 Range/Units 05:58 06:18 06:18 WBC 8.13 (4.0-11.0) K/uL RBC 3.80 L (4.50-5.90) M/uL Hgb 11.2 L (13.0-17.0) g/dL Hct 32.4 L (38.0-50.0) % MCV 85.3 (80.0-98.0) fL MCH 29.5 (27.0-32.0) pg MCHC 34.6 (31.0-37.0) g/dL RDW Std Deviation 39.2 (28.0-62.0) fl RDW Coeff of Anand 13 (11.0-15.0) % Plt Count 287 (150-400) K/uL MPV 9.00 (7.40-12.00) fL Neut % (Auto) 74.8 (48.0-80.0) % Lymph % (Auto) 9.7 L (16.0-40.0) % [place] % (Auto) 7.6 (0.0-15.0) % Eos % (Auto) 7.5 H (0.0-7.0) % Baso % (Auto) 0.4 (0.0-1.5) % Neut # (Auto) 6.1 H (1.4-5.7) K/uL Lymph # (Auto) 0.8 (0.6-2.4) K/uL [place] # (Auto) 0.6 (0.0-0.8) K/uL Eos # (Auto) 0.6 (0.0-0.7) K/uL Baso # (Auto) 0.0 (0.0-0.1) K/uL Nucleated RBC % 0.0 /100WBC Nucleated RBCs # 0 K/uL Sodium 137 (136-148) mmol/L Potassium 3.2 L (3.5-5.1) mmol/L Chloride 104 (98-107) mmol/L Carbon Dioxide 23.1 (21.0-32.0) mmol/L BUN 13 (7.0-18.0) mg/dL Creatinine 0.7 L (0.8-1.3) mg/dL Est Cr Clr Drug Dosing 134.29 mL/min Estimated GFR (MDRD) > 60.0 ml/min Glucose 97 (74-106) mg/dL Calcium 8.1 L (8.5-10.1) mg/dL Magnesium 2.0 2.0 (1.8-2.4) mg/dL Tyson Results Last 24 Hours: Microbiology 07/04/18 09:10 Stool Culture - Final Stool / Feces NO SALMONELLA, SHIGELLA,OR E.COLI O157 ISOLATED Campylobacter Antigen Assay - Final Positive Campylobacter Ag Shiga Toxin I - Final NEGATIVE FOR SHIGA TOXIN 1 REFERENCE RANGE: NEGATIVE Shiga Toxin II - Final NEGATIVE FOR SHIGA TOXIN 2 REFERENCE RANGE: NEGATIVE 07/04/18 15:05 Urine Culture - Final Urine, Clean Catch No Growth 07/04/18 11:06 Aerobic Blood Culture - Preliminary Blood - Venous - Lab Draw NO GROWTH AFTER 1 DAY Anaerobic Blood Culture - Preliminary NO GROWTH AFTER 1 DAY 07/04/18 10:26 Aerobic Blood Culture - Preliminary Blood - Venous NO GROWTH AFTER 1 DAY Anaerobic Blood Culture - Preliminary NO GROWTH AFTER 1 DAY Med Orders - Current: Current Medications Heparin Sodium (Porcine) (Heparin Sodium) 5,000 units SUBCUT Q8H [facility] Last Admin: 07/06/18 06:12 Dose: 5,000 units Levofloxacin/Dextrose 750 mg/ (Premix) 150 mls @ 100 mls/hr IV Q24H [facility] Last Admin: 07/05/18 13:25 Dose: 100 mls/hr Sodium Chloride (Normal Saline) 1,000 mls @ 125 mls/hr IV ASDIRECTED [facility] Last Admin: 07/06/18 08:15 Dose: 125 mls/hr Potassium Chloride/Sodium Chloride (Normal Saline With 40 Meq Kcl) 1,000 mls @ 150 mls/hr IV ASDIRECTED [facility] Stop: 07/06/18 16:39 Morphine Sulfate (Morphine) 2 mg IVPUSH Q4H PRN PRN Reason: Pain Last Admin: 07/05/18 08:39 Dose: 2 mg Nicotine (Habitrol) 14 mg TRDERM DAILY [facility] Last Admin: 07/06/18 08:34 Dose: 14 mg Ondansetron HCl (Zofran) 4 mg IVPUSH Q4H PRN PRN Reason: Nausea Oxycodone HCl (Oxycodone) 5 mg PO Q4H PRN PRN Reason: Pain Last Admin: 07/06/18 06:11 Dose: 5 mg Sodium Chloride (Saline Flush) 10 ml FLUSH ASDIRECTED PRN PRN Reason: Keep Vein Open Last Admin: 07/04/18 09:16 Dose: 10 ml Sodium Chloride (Saline Flush) 2.5 ml FLUSH ASDIRECTED PRN PRN Reason: Keep Vein Open Last Admin: 07/04/18 09:16 Dose: 2.5 ml Vancomycin HCl (First-Vancomycin 25 Compounding Kit) 125 mg PO QID [facility] Last Admin: 07/06/18 06:12 Dose: 5 ml Discontinued Medications Azithromycin (Zithromax) 500 mg PO STAT ONE Stop: 07/04/18 09:51 Last Admin: 07/04/18 10:09 Dose: 500 mg Sodium Chloride (Normal Saline) 1,000 mls @ 999 mls/hr IV STAT ONE Stop: 07/04/18 10:02 Last Admin: 07/04/18 09:14 Dose: 999 mls/hr Levofloxacin/Dextrose 750 mg/ (Premix) 150 mls @ 100 mls/hr IV ONETIME ONE Stop: 07/04/18 11:46 Last Admin: 07/04/18 11:11 Dose: 100 mls/hr Metronidazole 500 mg/ Premix 100 mls @ 100 mls/hr IV QID [facility] Last Admin: 07/06/18 06:12 Dose: 100 mls/hr Potassium Chloride/Sodium Chloride (Normal Saline With 40 Meq Kcl) 1,000 mls @ 150 mls/hr IV ASDIRECTED [facility] Stop: 07/05/18 20:54 Last Admin: 07/05/18 15:20 Dose: 150 mls/hr Iopamidol (Isovue Multipack-370 (76%)) 100 ml IVPUSH ONETIME ONE Stop: 07/04/18 10:13 Last Admin: 07/04/18 10:12 Dose: 100 ml Ondansetron HCl (Zofran) 4 mg IVPUSH ONETIME ONE Stop: 07/04/18 09:03 Last Admin: 07/04/18 09:14 Dose: 4 mg Potassium Chloride (Klor-Con M20) 40 meq PO ONETIME ONE Stop: 07/05/18 14:11 Last Admin: 07/05/18 15:20 Dose: 40 meq Potassium Chloride (Potassium Chloride) 40 meq PO ONETIME ONE Stop: 07/06/18 07:44 Last Admin: 07/06/18 08:48 Dose: Not Given Potassium Chloride (Klor-Con M20) 40 meq PO ONETIME ONE Stop: 07/06/18 09:54 Last Admin: 07/06/18 10:31 Dose: 40 meq - Exam General: Alert, Oriented, Cooperative Lungs: Normal Respiratory Effort Cardiovascular: Regular Rate GI/Abdominal Exam: Soft, Non-Tender, No Distention, Other (The lower midline incision appeared to be opening up. I removed the melinda and found an abscess along the lower midline extending to the umbilicus. This was opened and packed with wet to dry dressings. Fascia was intact underneath) Consult PN Assessment/Plan Procedures: Procedures BLOOD CULTURE FOR BACTERIA (07/15/17) COMPLETE CBC W/AUTO DIFF WBC (07/15/17) COMPREHEN METABOLIC PANEL (07/15/17) CT ABD & PELV W/CONTRAST (07/15/17) EMERGENCY DEPT VISIT (07/15/17) EMERGENCY DEPT VISIT (12/19/14) HYDRATE IV INFUSION ADD-ON (07/15/17) HYDRATION IV INFUSION INIT (10/16/17) PET IMAGE W/CT SKULL-THIGH (04/27/18) PROTHROMBIN TIME (07/15/17) ROUTINE VENIPUNCTURE (07/15/17) THER/PROPH/DIAG INJ SC/IM (10/16/17) THER/PROPH/DIAG IV INF INIT (07/15/17) TX/PRO/DX INJ NEW DRUG ADDON (07/15/17) URINALYSIS AUTO W/SCOPE (07/15/17) (1) C. difficile diarrhea SNOMED Code(s): 6864070063845 Code(s): A04.72 - ENTEROCOLITIS D/T CLOSTRIDIUM DIFFICILE, NOT SPCF RECUR Current Visit: Yes (2) Campylobacter diarrhea SNOMED Code(s): 66525786 Code(s): A04.5 - CAMPYLOBACTER ENTERITIS Current Visit: Yes (3) Gaseous distention of intestine determined by X-ray SNOMED Code(s): 133855163, 484344607 Code(s): K63.89 - OTHER SPECIFIED DISEASES OF INTESTINE Current Visit: Yes (4) History of colon cancer SNOMED Code(s): 259349736 Code(s): Z85.038 - PERSONAL HISTORY OF MALIGNANT NEOPLASM OF LARGE INTESTINE Current Visit: Yes (5) Post-operative complication SNOMED Code(s): 702492202 Code(s): T81.9XXA - UNSPECIFIED COMPLICATION OF PROCEDURE, INITIAL ENCOUNTER Current Visit: Yes (6) Surgical site infection SNOMED Code(s): 58963851, 567957668 Code(s): T81.49XA - INFECTION FOLLOWING A PROCEDURE, OTHER SURGICAL SITE, INIT Current Visit: Yes Problem List Initiated/Reviewed/Updated: Yes Plan: 1) Ok to d/c flagyl. 2) Wet to dry dressing changes BID to ostomy site and lower midline incision. 3) Ok to shower. 4) Ok to advance diet to regular.
[2018-07-06] MEDS: Levofloxacin/Dextrose 5%-Water 750 MG in Premix Bag 1 BAG IV SCH (12:38)
[2018-07-07] MEDS: Vancomycin 25 MG/ML Compounding Kit PO SCH ×3 (00:08→12:22)
[2018-07-07] MEDS: oxyCODONE 5 MG Tab PO PRN ×2 (00:09→05:08)
[2018-07-07] MEDS: Sodium Chloride 0.9% 1,000 ML IV SCH (03:29)
[2018-07-07] MEDS: Heparin Sodium 5,000 Units/ML Vial SUBCUT SCH (05:08)
[2018-07-07] MEDS ORDERED: Potassium Chloride 20 MEQ Tab.ER PO ONE ×2 (07:52→18:00)
[2018-07-07 08:07] VITALS: BP 129/58
[2018-07-07] MEDS: Nicotine 14 MG/24 Hr Patch TRDERM SCH (08:12)
[2018-07-07] MEDS ORDERED: Magnesium Sulfate/Water 2 GM in Premix Bag 1 BAG IV ONE (08:42)
[2018-07-07 09:39] LABS: CHLORIDE,CL 102 mmol/L (98-107); SODIUM,NA 136 mmol/L (136-148)
--- NOTE | 2018-07-07 12:20 | PCM.DCSUM1 ---
Discharge Summary - Hospital Course Free Text/Narrative:: Admission date: 07/04/2018 Discharge date: 07/07/2018 Admission diagnosis: #1. Post op ileus #2. UTI #3. C diff colitis #4. Campylobacter diarrhea Discharge diagnosis: #1. C diff #2. Campylobacter diarrhea #3. Ostomy site infection s/p staple removal and packing Consults: Dr. Wisdom, general surgery Follow up: Dr. Wisdom DC meds: PO Vancomycin, Levaquin 48M hx of colon cancer admitted for abdominal pain, nausea, vomiting, diarrhea. The above findings were discovered, he was placed on IV flagyl, levaquin. Surgery was consulted who stated that he had a ostomy site infection which was packed. diet was advanced as tolerated, which he did well. He is to continue PO vancomycin for C diff which improved in terms of symptoms (less diarrhea) and levaquin for his campylobacter diarrhea. Urine culture was negative. - Discharge Data Discharge Date: 07/07/18 Discharge Disposition: Home, Self-Care 01 Condition: Fair - Patient Instructions Diet: Usual Diet as Tolerated Activity: As Tolerated Driving: May Drive Today Notify Provider of: Fever, Increased Pain, Nausea and/or Vomiting - Discharge Plan Prescriptions/Med Rec: Levofloxacin [Levaquin] 750 mg PO DAILY 5 Days #5 tablet Vancomycin [First-Vancomycin 25 Compounding Kit] 125 mg PO QID 7 Days #1 bottle Home Medications: Home Meds Levofloxacin [Levaquin] 750 mg PO DAILY 5 Days #5 tablet 07/07/18 [Rx] Vancomycin [First-Vancomycin 25 Compounding Kit] 125 mg PO QID 7 Days #1 bottle 07/07/18 [Rx] Patient Handouts: Ileus, Levofloxacin tablets, Vancomycin oral solution Referrals: Gwendolyn Wisdom MD [Physician] - 07/15/18 3:30 pm - Discharge Summary/Plan Comment DC Time >30 min.: No - Patient Data Vitals - Most Recent: Last Vital Signs Temp 37.2 C 07/07/18 08:05 Pulse 58 L 07/07/18 08:05 Resp 16 07/07/18 08:05 BP 129/58 L 07/07/18 08:05 Pulse Ox 96 07/07/18 08:05 Weight - Most Recent: 72 kg I&O - Last 24 hours: Intake & Output 07/06/18 07/07/18 07/07/18 22:59 06:59 14:59 Intake Total 800 2165 50 Output Total 0 Balance 800 2165 50 Lab Results - Last 24 hrs: Laboratory Results - last 24 hr 07/07/18 07/07/18 Range/Units 05:00 08:55 Sodium 136 (136-148) mmol/L Potassium 3.4 L (3.5-5.1) mmol/L Chloride 102 (98-107) mmol/L Carbon Dioxide 24.0 (21.0-32.0) mmol/L BUN 8 (7.0-18.0) mg/dL Creatinine 0.7 L (0.8-1.3) mg/dL Est Cr Clr Drug Dosing 134.29 mL/min Estimated GFR (MDRD) > 60.0 ml/min Glucose 105 (74-106) mg/dL Calcium 7.7 L (8.5-10.1) mg/dL Magnesium 1.7 L (1.8-2.4) mg/dL MARIO Results - Last 24 hrs: Microbiology 07/04/18 11:06 Aerobic Blood Culture - Preliminary Blood - Venous - Lab Draw NO GROWTH AFTER 3 DAYS Anaerobic Blood Culture - Preliminary NO GROWTH AFTER 3 DAYS 07/04/18 10:26 Aerobic Blood Culture - Preliminary Blood - Venous NO GROWTH AFTER 3 DAYS Anaerobic Blood Culture - Preliminary NO GROWTH AFTER 3 DAYS 07/04/18 09:10 Stool Culture - Final Stool / Feces NO SALMONELLA, SHIGELLA,OR E.COLI O157 ISOLATED Campylobacter Antigen Assay - Final Positive Campylobacter Ag Shiga Toxin I - Final NEGATIVE FOR SHIGA TOXIN 1 REFERENCE RANGE: NEGATIVE Shiga Toxin II - Final NEGATIVE FOR SHIGA TOXIN 2 REFERENCE RANGE: NEGATIVE 07/04/18 15:05 Urine Culture - Final Urine, Clean Catch No Growth Med Orders - Current: Current Medications Heparin Sodium (Porcine) (Heparin Sodium) 5,000 units SUBCUT Q8H [facility] Last Admin: 07/07/18 05:08 Dose: 5,000 units Levofloxacin/Dextrose 750 mg/ (Premix) 150 mls @ 100 mls/hr IV Q24H [facility] Last Admin: 07/06/18 12:38 Dose: 100 mls/hr Sodium Chloride (Normal Saline) 1,000 mls @ 125 mls/hr IV ASDIRECTED [facility] Last Admin: 07/07/18 03:29 Dose: 125 mls/hr Morphine Sulfate (Morphine) 2 mg IVPUSH Q4H PRN PRN Reason: Pain Last Admin: 07/05/18 08:39 Dose: 2 mg Nicotine (Habitrol) 14 mg TRDERM DAILY [facility] Last Admin: 07/07/18 08:12 Dose: Not Given Ondansetron HCl (Zofran) 4 mg IVPUSH Q4H PRN PRN Reason: Nausea Oxycodone HCl (Oxycodone) 5 mg PO Q4H PRN PRN Reason: Pain Last Admin: 07/07/18 05:08 Dose: 5 mg Potassium Chloride (Klor-Con M20) 40 meq PO ONETIME ONE Stop: 07/07/18 18:01 Sodium Chloride (Saline Flush) 10 ml FLUSH ASDIRECTED PRN PRN Reason: Keep Vein Open Last Admin: 07/04/18 09:16 Dose: 10 ml Sodium Chloride (Saline Flush) 2.5 ml FLUSH ASDIRECTED PRN PRN Reason: Keep Vein Open Last Admin: 07/04/18 09:16 Dose: 2.5 ml Vancomycin HCl (First-Vancomycin 25 Compounding Kit) 125 mg PO QID [facility] Last Admin: 07/07/18 05:08 Dose: 5 ml Discontinued Medications Azithromycin (Zithromax) 500 mg PO STAT ONE Stop: 07/04/18 09:51 Last Admin: 07/04/18 10:09 Dose: 500 mg Sodium Chloride (Normal Saline) 1,000 mls @ 999 mls/hr IV STAT ONE Stop: 07/04/18 10:02 Last Admin: 07/04/18 09:14 Dose: 999 mls/hr Levofloxacin/Dextrose 750 mg/ (Premix) 150 mls @ 100 mls/hr IV ONETIME ONE Stop: 07/04/18 11:46 Last Admin: 07/04/18 11:11 Dose: 100 mls/hr Metronidazole 500 mg/ Premix 100 mls @ 100 mls/hr IV QID [facility] Last Admin: 07/06/18 06:12 Dose: 100 mls/hr Potassium Chloride/Sodium Chloride (Normal Saline With 40 Meq Kcl) 1,000 mls @ 150 mls/hr IV ASDIRECTED [facility] Stop: 07/05/18 20:54 Last Admin: 07/05/18 15:20 Dose: 150 mls/hr Potassium Chloride/Sodium Chloride (Normal Saline With 40 Meq Kcl) 1,000 mls @ 150 mls/hr IV ASDIRECTED [facility] Stop: 07/06/18 16:39 Last Admin: 07/06/18 10:40 Dose: 150 mls/hr Magnesium Sulfate 2 gm/ Premix 50 mls @ 25 mls/hr IV ONETIME ONE Stop: 07/07/18 10:41 Last Admin: 07/07/18 09:05 Dose: 25 mls/hr Iopamidol (Isovue Multipack-370 (76%)) 100 ml IVPUSH ONETIME ONE Stop: 07/04/18 10:13 Last Admin: 07/04/18 10:12 Dose: 100 ml Ondansetron HCl (Zofran) 4 mg IVPUSH ONETIME ONE Stop: 07/04/18 09:03 Last Admin: 07/04/18 09:14 Dose: 4 mg Potassium Chloride (Klor-Con M20) 40 meq PO ONETIME ONE Stop: 07/05/18 14:11 Last Admin: 07/05/18 15:20 Dose: 40 meq Potassium Chloride (Potassium Chloride) 40 meq PO ONETIME ONE Stop: 07/06/18 07:44 Last Admin: 07/06/18 08:48 Dose: Not Given Potassium Chloride (Klor-Con M20) 40 meq PO ONETIME ONE Stop: 07/06/18 09:54 Last Admin: 07/06/18 10:31 Dose: 40 meq Potassium Chloride (Klor-Con M20) 40 meq PO ONETIME ONE Stop: 07/07/18 07:53 Last Admin: 07/07/18 08:11 Dose: 40 meq
--- NOTE | 2018-07-07 12:22 | PCM.CONSN ---
- General Info Date of Service: 07/07/18 Subjective Update: Patient states that he is feeling significantly better today. Tolerated regular diet. No pain along incisions. Dressings were saturated yesterday and changed by RN. Functional Status: Reports: Pain Controlled, Tolerating Diet, Ambulating, Urinating - Review of Systems General: Reports: No Symptoms HEENT: Reports: No Symptoms Pulmonary: Reports: No Symptoms Cardiovascular: Reports: No Symptoms Gastrointestinal: Reports: No Symptoms - Patient Data Vitals - Most Recent: Last Vital Signs Temp 37.2 C 07/07/18 08:05 Pulse 58 L 07/07/18 08:05 Resp 16 07/07/18 08:05 BP 129/58 L 07/07/18 08:05 Pulse Ox 96 07/07/18 08:05 Weight - Most Recent: 72 kg I&O - Last 24 Hours: Intake & Output 07/06/18 07/07/18 07/07/18 22:59 06:59 14:59 Intake Total 800 2165 970 Output Total 0 0 Balance 800 2165 970 Lab Results Last 24 Hours: Laboratory Results - last 24 hr 07/07/18 07/07/18 Range/Units 05:00 08:55 Sodium 136 (136-148) mmol/L Potassium 3.4 L (3.5-5.1) mmol/L Chloride 102 (98-107) mmol/L Carbon Dioxide 24.0 (21.0-32.0) mmol/L BUN 8 (7.0-18.0) mg/dL Creatinine 0.7 L (0.8-1.3) mg/dL Est Cr Clr Drug Dosing 134.29 mL/min Estimated GFR (MDRD) > 60.0 ml/min Glucose 105 (74-106) mg/dL Calcium 7.7 L (8.5-10.1) mg/dL Magnesium 1.7 L (1.8-2.4) mg/dL Tyson Results Last 24 Hours: Microbiology 07/04/18 11:06 Aerobic Blood Culture - Preliminary Blood - Venous - Lab Draw NO GROWTH AFTER 3 DAYS Anaerobic Blood Culture - Preliminary NO GROWTH AFTER 3 DAYS 07/04/18 10:26 Aerobic Blood Culture - Preliminary Blood - Venous NO GROWTH AFTER 3 DAYS Anaerobic Blood Culture - Preliminary NO GROWTH AFTER 3 DAYS 07/04/18 09:10 Stool Culture - Final Stool / Feces NO SALMONELLA, SHIGELLA,OR E.COLI O157 ISOLATED Campylobacter Antigen Assay - Final Positive Campylobacter Ag Shiga Toxin I - Final NEGATIVE FOR SHIGA TOXIN 1 REFERENCE RANGE: NEGATIVE Shiga Toxin II - Final NEGATIVE FOR SHIGA TOXIN 2 REFERENCE RANGE: NEGATIVE 07/04/18 15:05 Urine Culture - Final Urine, Clean Catch No Growth Med Orders - Current: Current Medications Heparin Sodium (Porcine) (Heparin Sodium) 5,000 units SUBCUT Q8H [facility] Last Admin: 07/07/18 05:08 Dose: 5,000 units Levofloxacin/Dextrose 750 mg/ (Premix) 150 mls @ 100 mls/hr IV Q24H [facility] Last Admin: 07/06/18 12:38 Dose: 100 mls/hr Sodium Chloride (Normal Saline) 1,000 mls @ 125 mls/hr IV ASDIRECTED [facility] Last Admin: 07/07/18 03:29 Dose: 125 mls/hr Morphine Sulfate (Morphine) 2 mg IVPUSH Q4H PRN PRN Reason: Pain Last Admin: 07/05/18 08:39 Dose: 2 mg Nicotine (Habitrol) 14 mg TRDERM DAILY [facility] Last Admin: 07/07/18 08:12 Dose: Not Given Ondansetron HCl (Zofran) 4 mg IVPUSH Q4H PRN PRN Reason: Nausea Oxycodone HCl (Oxycodone) 5 mg PO Q4H PRN PRN Reason: Pain Last Admin: 07/07/18 05:08 Dose: 5 mg Potassium Chloride (Klor-Con M20) 40 meq PO ONETIME ONE Stop: 07/07/18 18:01 Sodium Chloride (Saline Flush) 10 ml FLUSH ASDIRECTED PRN PRN Reason: Keep Vein Open Last Admin: 07/04/18 09:16 Dose: 10 ml Sodium Chloride (Saline Flush) 2.5 ml FLUSH ASDIRECTED PRN PRN Reason: Keep Vein Open Last Admin: 07/04/18 09:16 Dose: 2.5 ml Vancomycin HCl (First-Vancomycin 25 Compounding Kit) 125 mg PO QID [facility] Last Admin: 07/07/18 05:08 Dose: 5 ml Discontinued Medications Azithromycin (Zithromax) 500 mg PO STAT ONE Stop: 07/04/18 09:51 Last Admin: 07/04/18 10:09 Dose: 500 mg Sodium Chloride (Normal Saline) 1,000 mls @ 999 mls/hr IV STAT ONE Stop: 07/04/18 10:02 Last Admin: 07/04/18 09:14 Dose: 999 mls/hr Levofloxacin/Dextrose 750 mg/ (Premix) 150 mls @ 100 mls/hr IV ONETIME ONE Stop: 07/04/18 11:46 Last Admin: 07/04/18 11:11 Dose: 100 mls/hr Metronidazole 500 mg/ Premix 100 mls @ 100 mls/hr IV QID [facility] Last Admin: 07/06/18 06:12 Dose: 100 mls/hr Potassium Chloride/Sodium Chloride (Normal Saline With 40 Meq Kcl) 1,000 mls @ 150 mls/hr IV ASDIRECTED [facility] Stop: 07/05/18 20:54 Last Admin: 07/05/18 15:20 Dose: 150 mls/hr Potassium Chloride/Sodium Chloride (Normal Saline With 40 Meq Kcl) 1,000 mls @ 150 mls/hr IV ASDIRECTED [facility] Stop: 07/06/18 16:39 Last Admin: 07/06/18 10:40 Dose: 150 mls/hr Magnesium Sulfate 2 gm/ Premix 50 mls @ 25 mls/hr IV ONETIME ONE Stop: 07/07/18 10:41 Last Admin: 07/07/18 09:05 Dose: 25 mls/hr Iopamidol (Isovue Multipack-370 (76%)) 100 ml IVPUSH ONETIME ONE Stop: 07/04/18 10:13 Last Admin: 07/04/18 10:12 Dose: 100 ml Ondansetron HCl (Zofran) 4 mg IVPUSH ONETIME ONE Stop: 07/04/18 09:03 Last Admin: 07/04/18 09:14 Dose: 4 mg Potassium Chloride (Klor-Con M20) 40 meq PO ONETIME ONE Stop: 07/05/18 14:11 Last Admin: 07/05/18 15:20 Dose: 40 meq Potassium Chloride (Potassium Chloride) 40 meq PO ONETIME ONE Stop: 07/06/18 07:44 Last Admin: 07/06/18 08:48 Dose: Not Given Potassium Chloride (Klor-Con M20) 40 meq PO ONETIME ONE Stop: 07/06/18 09:54 Last Admin: 07/06/18 10:31 Dose: 40 meq Potassium Chloride (Klor-Con M20) 40 meq PO ONETIME ONE Stop: 07/07/18 07:53 Last Admin: 07/07/18 08:11 Dose: 40 meq - Exam General: Alert, Oriented, Cooperative Lungs: Normal Respiratory Effort Cardiovascular: Regular Rate GI/Abdominal Exam: Soft, Non-Tender, No Distention, Other (Granulation tissue in both wound beds with no surrounding cellulitis or purulent material expressed. Fascia intact underneath ) Consult PN Assessment/Plan Procedures: Procedures BLOOD CULTURE FOR BACTERIA (07/15/17) COMPLETE CBC W/AUTO DIFF WBC (07/15/17) COMPREHEN METABOLIC PANEL (07/15/17) CT ABD & PELV W/CONTRAST (07/15/17) EMERGENCY DEPT VISIT (07/15/17) EMERGENCY DEPT VISIT (12/19/14) HYDRATE IV INFUSION ADD-ON (07/15/17) HYDRATION IV INFUSION INIT (10/16/17) PET IMAGE W/CT SKULL-THIGH (04/27/18) PROTHROMBIN TIME (07/15/17) ROUTINE VENIPUNCTURE (07/15/17) THER/PROPH/DIAG INJ SC/IM (10/16/17) THER/PROPH/DIAG IV INF INIT (07/15/17) TX/PRO/DX INJ NEW DRUG ADDON (07/15/17) URINALYSIS AUTO W/SCOPE (07/15/17) (1) C. difficile diarrhea SNOMED Code(s): 4781126663584 Code(s): A04.72 - ENTEROCOLITIS D/T CLOSTRIDIUM DIFFICILE, NOT SPCF RECUR Current Visit: Yes (2) Campylobacter diarrhea SNOMED Code(s): 13405100 Code(s): A04.5 - CAMPYLOBACTER ENTERITIS Current Visit: Yes (3) Gaseous distention of intestine determined by X-ray SNOMED Code(s): 145199931, 261676302 Code(s): K63.89 - OTHER SPECIFIED DISEASES OF INTESTINE Current Visit: Yes (4) History of colon cancer SNOMED Code(s): 149889813 Code(s): Z85.038 - PERSONAL HISTORY OF MALIGNANT NEOPLASM OF LARGE INTESTINE Current Visit: Yes (5) Post-operative complication SNOMED Code(s): 053412385 Code(s): T81.9XXA - UNSPECIFIED COMPLICATION OF PROCEDURE, INITIAL ENCOUNTER Current Visit: Yes (6) Surgical site infection SNOMED Code(s): 00615886, 281968330 Code(s): T81.49XA - INFECTION FOLLOWING A PROCEDURE, OTHER SURGICAL SITE, INIT Current Visit: Yes Problem List Initiated/Reviewed/Updated: Yes Plan: Wet to dry dressing changes at least daily however can be performed more frequently to keep wound dry. Remainder of cares per primary team. F/u in 1 week for wound check.
== END 2018-07-07 11:30 | disposition home or self-care (01) ==
LOC: MW.ED 08:34 → MW.MS 12:37
PROVIDERS: ADMIT Internal Medicine; ATTEND Internal Medicine
DX: A04.5 Campylobacter enteritis (principal); A04.72 Enterocolitis due to Clostridium difficile, not specified as recurrent; E87.6 Hypokalemia; K94.02 Colostomy infection; N39.0 Urinary tract infection, site not specified; F17.200 Nicotine dependence, unspecified, uncomplicated; Z85.038 Personal history of other malignant neoplasm of large intestine
CPT/HCPCS: 36415; 71045; 74177; 80048; 80053; 81001; 83605; 83630; 83690; 83735; 85025; 85610; 87040; 87046; 87086; 87324; 87328; 87329; 87899; 96361; 96365; 96366; 96367; 96372; 96375; 96376; 99285; A4217; A9270; G0378; J1644; J1956; J2270; J2405; J3475; J3480; J3490; J7040; Q9967

== ENCOUNTER 2018-07-09 18:16 | Emergency (ER) | payer MEDICAID ==
[2018-07-09] MEDS ORDERED: Sodium Chloride 0.9% 1,000 ML IV ONE (18:33)
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
[2018-07-09] MEDS ORDERED: Iopamidol 755 Mg/ML 100 ML Bottle IVPUSH STA (19:07)
[2018-07-09 19:13] LABS: CHLORIDE,CL 102 mmol/L (98-107); SODIUM,NA 139 mmol/L (136-148)
[2018-07-09 19:36] VITALS: BP 123/79
[2018-07-09] MEDS ORDERED: Potassium Chloride Riders 40 MEQ in Premix Bag 1 BAG IV ONE (19:36)
--- NOTE | 2018-07-09 20:04 | CT ---
INDICATION: Nausea, dizziness TECHNIQUE: CT abdomen and pelvis acquired with IV contrast. COMPARISON: 07/04/2018 FINDINGS: In the lower thorax there are no masses or effusions. The liver, gallbladder, spleen, pancreas, adrenal glands and right kidney remain normal. A tiny nonobstructing caliceal calcification in the inferior pole of the left kidney measures up to 2 millimeters in diameter. The urinary bladder, prostate and seminal vesicles appear normal. No gastric or small bowel abnormalities are seen with interval resolution of small bowel dilatation. Minimal pneumoperitoneum persists but is markedly improved. Changes of previous midline laparotomy are noted. Surgical sutures are present in the sigmoid colon region. There is a new loculated 7 x 4 by 3 centimeter peripherally enhancing fluid collection in the pelvis just dorsal to the urinary bladder. This is compatible with either a seroma, hematoma or abscess. A small amount of ascites is present in the right pericolic gutter. 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 Atherosclerotic calcifications are noted in the nondilated aorta and iliac arteries. No acute osseous abnormality is seen. IMPRESSION: 1. New 7 x 4 x 3 centimeter loculated fluid collection in the cul-de-sac region of the pelvis is concerning for either a postoperative hematoma, seroma or abscess. 2. Interval resolution of previously identified small bowel ileus. 3. Near complete resolution of pneumoperitoneum. 4. Other findings are as noted above. Please note that all CT scans at this facility use dose modulation, iterative reconstruction, and/or weight-based dosing when appropriate to reduce radiation dose to as low as reasonably achievable. Dictated by Aden Bowman MD @ Jul 09 2018 7:48PM Signed by Dr. Aden Bowman @ Jul 09 2018 8:01PM
== END 2018-07-09 19:59 | disposition left against medical advice (07) ==
LOC: MW.ED 18:16
DX: T81.49XA Infection following a procedure, other surgical site, initial encounter (principal); R10.84 Generalized abdominal pain; R60.0 Localized edema; E87.6 Hypokalemia
CPT/HCPCS: 36415; 74177; 80053; 81001; 83690; 84484; 85025; 96360; 99284; J7040; Q9967

== ENCOUNTER 2021-04-16 10:20 | Emergency (ER) | payer MEDICAID ==
[2021-04-16] MEDS ORDERED: Sodium Chloride 0.9% 1,000 ML IV ONE (10:34)
[2021-04-16] MEDS ORDERED: Ondansetron 4 MG/2 ML SDV IVPUSH ONE (10:34)
[2021-04-16] MEDS ORDERED: Morphine 4 MG/ML VIAL IVPUSH ONE ×2 (10:35→13:44)
[2021-04-16 11:58] LABS: BLOOD UREA NITROGEN,BUN 13 mg/dL (7.0-18.0); CARBON DIOXIDE,CO2 25.1 mmol/L (21.0-32.0); CHLORIDE,CL 99 mmol/L (98-107); GLUCOSE RANDOM 111 mg/dL (74-106); LIPASE 165 U/L (73-393); SODIUM,NA 134 mmol/L (136-148)
[2021-04-16] MEDS ORDERED: Iopamidol 755 MG/ML 500 ML Multipack Bottle IVPUSH STA (12:43)
[2021-04-16] MEDS ORDERED: Nicotine 21 MG/24 Hr Patch TRDERM ONE (15:17)
[2021-04-16] MEDS ORDERED: Piperacillin/Tazobactam 3.375 GM in Sodium Chloride 0.9% 50 ML IV ONE (15:53)
[2021-04-16] MEDS ORDERED: HYDROmorphone 1 MG/ML Syringe IVPUSH ONE (16:23)
[2021-04-16 17:12] VITALS: BP 120/82; PULSE 106
== END 2021-04-16 18:42 ==
LOC: MW.ED 10:20
DX: K83.1 Obstruction of bile duct (principal); D69.6 Thrombocytopenia, unspecified; D72.829 Elevated white blood cell count, unspecified; R91.8 Other nonspecific abnormal finding of lung field; R16.0 Hepatomegaly, not elsewhere classified; Z72.0 Tobacco use; Z20.822 Contact with and (suspected) exposure to COVID-19
CPT/HCPCS: 36415; 71045; 74177; 76705; 80053; 81003; 83690; 84484; 85025; 87635; 93005; 96365; 96375; 96376; 99285; A9270; J1170; J2270; J2405; J2543; J7030; Q9967; 93010; U0002

== ENCOUNTER 2021-04-22 08:16 | Inpatient (IN) | payer MEDICAID ==
[2021-04-22] MEDS ORDERED: LORazepam 2 MG/ML SDV IVPUSH ONE (08:40)
[2021-04-22] MEDS ORDERED: Sodium Chloride 0.9% 1,000 ML IV ONE (08:40)
[2021-04-22] MEDS ORDERED: HYDROmorphone 1 MG/ML Syringe IVPUSH ONE (08:40)
[2021-04-22] MEDS: Morphine 2 MG/ML SYRINGE IVPUSH PRN ×3 (13:15→19:57)
[2021-04-22] MEDS ORDERED: Albuterol/Ipratropium 3.0-0.5 MG/3 ML Neb Soln NEB PRN (14:00)
[2021-04-22] MEDS ORDERED: Ondansetron 4 MG/2 ML SDV IVPUSH PRN (14:00)
[2021-04-22] MEDS: LORazepam 2 MG/ML SDV IVPUSH PRN ×2 (16:17→19:56)
[2021-04-23] MEDS: LORazepam 2 MG/ML SDV IVPUSH PRN ×5 (01:02→22:17)
[2021-04-23] MEDS: Morphine 2 MG/ML SYRINGE IVPUSH PRN ×4 (02:43→11:26)
[2021-04-23] MEDS ORDERED: Scopolamine 1.5 MG Transdermal Patch TRDERM SCH (09:00)
[2021-04-23] MEDS ORDERED: Morphine 2 MG/ML SYRINGE IVPUSH ONE (09:31)
[2021-04-23] MEDS: Nicotine 14 MG/24 Hr Patch TRDERM SCH (09:36)
[2021-04-23] MEDS: Bisacodyl 10 MG Supp RECTAL SCH (11:31)
[2021-04-23] MEDS: Docusate Sodium 100 MG Cap PO SCH ×2 (11:31→22:17)
[2021-04-23] MEDS: Morphine 4 MG/ML VIAL IVPUSH PRN ×4 (13:37→22:17)
[2021-04-24] MEDS: LORazepam 2 MG/ML SDV IVPUSH PRN ×2 (04:47→09:29)
[2021-04-24] MEDS: Morphine 4 MG/ML VIAL IVPUSH PRN ×3 (04:48→11:46)
[2021-04-24 08:27] VITALS: PULSE 121
[2021-04-24] MEDS: Nicotine 14 MG/24 Hr Patch TRDERM SCH (08:32)
[2021-04-24] MEDS: Bisacodyl 10 MG Supp RECTAL SCH (08:34)
[2021-04-24] MEDS ORDERED: NICOTINE Remove Patch TRDERM SCH (09:00)
[2021-04-24] MEDS: Docusate Sodium 100 MG Cap PO SCH ×2 (11:46→23:09)
[2021-04-24] MEDS: Morphine 10 MG/0.5 ML Oral Syringe PO PRN ×5 (13:25→23:09)
[2021-04-24] MEDS: LORazepam ORAL Concentrate 1MG/0.5ML U/D SL PRN ×3 (13:26→20:14)
[2021-04-24 20:12] VITALS: BP 116/76
[2021-04-25] MEDS: Morphine 10 MG/0.5 ML Oral Syringe PO PRN (01:52)
[2021-04-26] MEDS ORDERED: [UNRECOGNIZED DRUG - REMARK] TRDERM SCH (09:00)
== END 2021-04-25 08:30 | disposition expired | DRG 951 ==
LOC: MW.ED 08:16 → MW.MS 09:25
PROVIDERS: ADMIT Student in an Organized Health Care Education/Training Program; ATTEND Student in an Organized Health Care Education/Training Program
DX: Z51.5 Encounter for palliative care (principal); C18.9 Malignant neoplasm of colon, unspecified; C78.7 Secondary malignant neoplasm of liver and intrahepatic bile duct; C78.02 Secondary malignant neoplasm of left lung; C78.01 Secondary malignant neoplasm of right lung; F17.200 Nicotine dependence, unspecified, uncomplicated; R26.81 Unsteadiness on feet; Z20.822 Contact with and (suspected) exposure to COVID-19; Z92.21 Personal history of antineoplastic chemotherapy; Z87.828 Personal history of other (healed) physical injury and trauma; Z87.81 Personal history of (healed) traumatic fracture
CPT/HCPCS: 93005; 93010; 96374; 96375; 99221; 99232; 99238; 99283; 99285-25; A9270-GY; J1170; J2060; J2270; J2405; J7030; J7620-GY; U0002